=== PATIENT | male | born 1955 | race Caucasian/White ===

== ENCOUNTER → 2016-04-23 | Outpatient (CLI) | payer OTHER ==
[~2016-04-23] MED LIST: BYDUREON2 MG SQ; CENTRUM COMPLE1 EACH PO; COLACE 100MG C100 MG PO; FEOSOL325 MG PO; JANUMET 50-1,01 EACH PO; NORCO 5-325 TA1 EACH PO; NORCO 7.5-3251 EACH PO; OMEPRAZOLE20 M1 PO; PRIMIDONE50 MG PO; PRINIVIL20 MG PO; SIMVASTATIN40 MG PO; TRESIBA SQ
== END ==
LOC: CT 11:02
DX: C18.7 Malignant neoplasm of sigmoid colon (principal); K43.5 Parastomal hernia without obstruction or gangrene; C78.7 Secondary malignant neoplasm of liver and intrahepatic bile duct; D50.0 Iron deficiency anemia secondary to blood loss (chronic); D50.9 Iron deficiency anemia, unspecified; K90.9 Intestinal malabsorption, unspecified
CPT/HCPCS: 71260; J7050; Q9962

== ENCOUNTER 2016-05-09 07:40 | Observation (INO) | payer OTHER ==
[~2016-05-09] VITALS: Ht 180.3 cm; Wt 101.6 kg
[~2016-05-09 07:40] MED LIST changes: -BYDUREON2 MG SQ; -COLACE 100MG C100 MG PO; -NORCO 7.5-3251 EACH PO; -PRIMIDONE50 MG PO; -TRESIBA SQ
[2016-05-09 09:25] LABS: RED BLOOD COUNT 4.66 M/UL (4.20-5.50); WHITE BLOOD COUNT 9.1 K/UL (4.5-11.0)
[2016-05-09 09:42] LABS: BUN/CREATININE RATIO 14 (0-10)
[2016-05-09] MEDS ORDERED: TRESIBA SQ (21:31)
[2016-05-09] MEDS ORDERED: PRIMIDONE50 MG PO (21:32)
[2016-05-09] MEDS ORDERED: BYDUREON2 MG SQ (21:33)
[2016-05-10 06:00] LABS: HEMOGLOBIN 13.2 gm/dl (14.0-17.5); RED BLOOD COUNT 4.41 M/UL (4.20-5.50); WHITE BLOOD COUNT 7.3 K/UL (4.5-11.0)
[2016-05-10 06:18] LABS: BUN/CREATININE RATIO 15 (0-10)
[2016-05-10] MEDS ORDERED: COLACE 100MG C100 MG PO (17:29)
[2016-05-10] MEDS ORDERED: NORCO 7.5-3251 EACH PO (17:30)
== END 2016-05-10 19:09 | disposition home or self-care (01) ==
LOC: ER1 07:40 → ZEROF 16:19 → M/S 20:48
PROVIDERS: Emergency Medicine; ADMIT Internal Medicine
DX: K85.90 Acute pancreatitis without necrosis or infection, unspecified (principal); E11.9 Type 2 diabetes mellitus without complications; I10 Essential (primary) hypertension; E78.5 Hyperlipidemia, unspecified; I25.10 Atherosclerotic heart disease of native coronary artery without angina pectoris; Z85.038 Personal history of other malignant neoplasm of large intestine; Z83.3 Family history of diabetes mellitus; Z82.49 Family history of ischemic heart disease and other diseases of the circulatory system; Z80.3 Family history of malignant neoplasm of breast; Z79.891 Long term (current) use of opiate analgesic; Z79.899 Other long term (current) drug therapy; Z93.3 Colostomy status; Z98.890 Other specified postprocedural states
CPT/HCPCS: 36415; 80048; 80053; 81001; 82150; 82962; 83036; 83690; 83735; 85025; 85027; 96374; 96375; 96376; 99285; G0378; J2270; J2405; J7030; J7050; Q9962

== ENCOUNTER 2016-07-16 09:19 | Emergency (ER) | payer OTHER ==
[~2016-07-16 09:19] MED LIST changes: +BYDUREON2 MG SQ; +COLACE 100MG C100 MG PO; +NORCO 7.5-3251 EACH PO; +PRIMIDONE50 MG PO; +TRESIBA SQ
[2016-07-16 10:08] LABS: HEMOGLOBIN 14.2 gm/dl (14.0-17.5); RED BLOOD COUNT 4.82 M/UL (4.20-5.50); WHITE BLOOD COUNT 7.1 K/UL (4.5-11.0)
[2016-07-16 10:24] LABS: BUN/CREATININE RATIO 11 (0-10)
== END 2016-07-16 16:30 | disposition home or self-care (01) ==
LOC: ER1 09:19
PROVIDERS: Emergency Medicine
DX: R10.84 Generalized abdominal pain (principal); C18.9 Malignant neoplasm of colon, unspecified; Z93.2 Ileostomy status; Z79.84 Long term (current) use of oral hypoglycemic drugs; Z79.899 Other long term (current) drug therapy
CPT/HCPCS: 36415; 74022; 80053; 81001; 83605; 83690; 85025; 85610; 85730; 87040; 96372; 96374; 96375; 96376; 99284; J0696; J1630; J2270; J2405; J7030; J7050; Q9962